=== PATIENT | male | born 1975 | race Hispanic/Latino ===

== ENCOUNTER 2023-03-07 18:16 | Inpatient (IN) | payer OTHER, SELFPAY ==
[2023-03-07] MEDS ORDERED: Ondansetron PF 4 MG/2 ML Vial ONE (18:43)
[2023-03-07] MEDS ORDERED: Morphine 4 MG/ML VIAL ONE (18:43)
[2023-03-07 18:44] LABS: #Eosinphils 0.2 thou/uL (0.0-0.7); #Monocytes 0.8 thou/uL (0.11-0.59); #Neutrophils 6.7 thou/uL (1.40-6.50); %Basophils 0.3 % (0.0-1.0); %Eosinophils 1.6 % (0.0-10.0); %Lymphocytes 26.2 % (21.0-51.0); %Monocytes 7.2 % (0.0-10.0); %Neutrophils 64.5 % (42.0-75.0); Hematocrit 42.8 % (42.0-52.0); Hemoglobin 14.4 g/dL (14.0-18.0); Mean Corpuscular HGB CONC 33.6 g/dL (32.0-36.0); Mean Corpuscular Hemoglobin 32.2 pg (27.0-31.0); Mean Corpuscular Volume 95.7 fl (78.0-98.0); Mean Platelet Volume 9.2 fL (7.4-10.4); Platelet Count 265 10x3/uL (130-400); RBC Distribution Width 12.4 % (11.5-14.5); Red Blood Cell (RBC) Count 4.47 mill/uL (4.70-6.10); White Blood Cell (WBC) Count 10.4 10x3/uL (4.8-10.8)
[2023-03-07] MEDS ORDERED: Clindamycin/D5W 300 MG/50 ML BAG ONE (18:45)
[2023-03-07] MEDS ORDERED: Dextrose 50% Abboject 50 ML SYRINGE SLOW IVP PRN (18:54)
[2023-03-07] MEDS ORDERED: Morphine 2 MG/ML VIAL SLOW IVP PRN (18:54)
[2023-03-07] MEDS ORDERED: Ipratropium/Albuterol 3 ML NEB NEB PRN (18:54)
[2023-03-07] MEDS ORDERED: TETANUS, DIPHTHERIA TOX,ADULT (TDVAX) 0.5 ML VIAL IM ONE (18:54)
[2023-03-07] MEDS ORDERED: Glucagon 1 MG/ML KIT IM PRN (18:54)
[2023-03-07] MEDS ORDERED: Ondansetron PF 4 MG/2 ML Vial IVP PRN (18:54)
[2023-03-07] MEDS ORDERED: hydrALAZINE 20 MG/ML VIAL SLOW IVP PRN (18:54)
[2023-03-07] MEDS ORDERED: Dextrose 5% in Water 1,000 ML IV PRN (18:54)
[2023-03-07 19:00] LABS: ALT (SGPT) 25 U/L (8-55); AST (SGOT) 24 U/L (5-34); Albumin 4.9 g/dL (3.5-5.0); Alkaline Phosphatase 61 U/L (40-110); Anion Gap 18 mmol/L (10-20); BUN (Urea Nitrogen) 18 mg/dL (8.9-20.6); Bilirubin, Total 0.4 mg/dL (0.2-1.2); Calc. Creatinine Clearance 0 mL/min (70-130); Calcium 9.3 mg/dL (7.8-10.44); Carbon Dioxide 18 mmol/L (22-29); Chloride 106 mmol/L (98-107); Estimated GFR 85; Globulin 3.2 g/dL (2.4-3.5); Glucose 103 mg/dL (70-105); Potassium 3.7 mmol/L (3.5-5.1); Protein, Total 8.1 g/dL (6.0-8.3); Sodium 138 mmol/L (136-145)
[2023-03-07 19:17] LABS: Prothrombin Time 13.3 sec (12.0-14.7)
[2023-03-07] MEDS ORDERED: Boostrix 0.5 ML (Tdap) VIAL (>/=7 yrs of age) ONE (19:24)
[2023-03-07] MEDS ORDERED: Morphine 2 MG/ML VIAL ONE ×2 (19:24→21:37)
[2023-03-07] MEDS ORDERED: Lidocaine 1% w/Epinephrine 1:100K 20 ML VIAL ONE (20:07)
[2023-03-07 22:40] VITALS: BMI 26.9
[2023-03-07] MEDS: Sodium Chloride 0.9% 1,000 ML IV SCH (22:57)
[2023-03-07] MEDS: Famotidine/PF 20 mg/2ml Vial SLOW IVP SCH (22:58)
[2023-03-07] MEDS: Acetaminophen 325 MG TAB PO SCH (22:58)
[2023-03-08] MEDS: Acetaminophen 325 MG TAB PO SCH (03:06)
[2023-03-08] MEDS: Acetaminophen 500 MG TAB PO SCH ×3 (05:11→23:17)
[2023-03-08] MEDS: Sodium Chloride 0.9% 1,000 ML IV SCH ×3 (05:16→16:42)
[2023-03-08] MEDS ORDERED: Rocuronium Bromide 10 MG/ML (10ML VIAL) ONE (09:25)
[2023-03-08] MEDS ORDERED: PROPOFOL 200 MG/20 ML VIAL ONE (09:25)
[2023-03-08] MEDS ORDERED: Dexamethasone 20 MG/5 ML VIAL ONE (09:25)
[2023-03-08] MEDS ORDERED: PHENYLEPHRINE-NS 100 MCG/ML 10 ML SYRINGE ONE (09:25)
[2023-03-08] MEDS ORDERED: Lidocaine 1% PF 5 ML VIAL ONE (09:25)
[2023-03-08] MEDS ORDERED: Ondansetron PF 4 MG/2 ML Vial ONE (09:25)
[2023-03-08] MEDS ORDERED: Ondansetron HCl/PF 4 MG/2 ML Vial IVP PRN (10:01)
[2023-03-08] MEDS ORDERED: Promethazine HCl 25 MG/ML VIAL IM PRN (10:01)
[2023-03-08] MEDS ORDERED: Lidocaine 1% (PF) 30 ML VIAL ONE (10:05)
[2023-03-08] MEDS ORDERED: Chlorhexidine Gluconate 15 ML UDCUP SSP ONE ×2 (10:05→10:52)
[2023-03-08] MEDS ORDERED: EPINEPHrine 1 MG/ML AMP ONE (10:05)
[2023-03-08] MEDS ORDERED: Bacitracin Zinc Ointment 30 gm TUBE ONE (10:05)
[2023-03-08] MEDS ORDERED: Ophthalmic Irrigation Solution 30 ML ONE (10:05)
[2023-03-08] MEDS ORDERED: Clindamycin/D5W 600 mg/50 ml Premix Bag ONE (10:10)
[2023-03-08] MEDS ORDERED: Fentanyl 250 MCG/5 ML VIAL ONE (10:12)
[2023-03-08] MEDS ORDERED: Midazolam HCl 2 mg/2 ml Vial ONE (10:12)
[2023-03-08] MEDS ORDERED: MINERAL OIL/WHITE PETROLATUM 3.5 GM TUBE ONE (10:41)
[2023-03-08] MEDS ORDERED: Cortisporin 1% Opth Oint 3.5 GM TUBE EA EYE SCH (11:45)
[2023-03-08] MEDS ORDERED: SUGAMMADEX SODIUM 200 MG/2 ML VIAL ONE (11:54)
[2023-03-08] MEDS ORDERED: fentaNYL 50 mcg/mL 1 mL Vial ONE (12:20)
[2023-03-08] MEDS: CEFAZOLIN 1 GM in Sodium Chloride 0.9% 100 ML IVPB SCH ×2 (15:41→16:39)
[2023-03-08] MEDS: Famotidine/PF 20 mg/2ml Vial SLOW IVP SCH ×2 (16:37→19:58)
[2023-03-08] MEDS: traMADol HCl 50 MG TAB PO PRN (20:03)
[2023-03-08] MEDS: Chlorhexidine Gluconate 15 ML UDCUP SSP SCH (21:30)
[2023-03-08] MEDS: Bacitracin Zinc Ointment 30 gm TUBE TOP PRN (23:18)
[2023-03-08] MEDS: Clindamycin 150 MG CAP PO SCH (23:18)
[2023-03-08] MEDS: Cortisporin 1% Opth Oint 3.5 GM TUBE EA EYE PRN (23:18)
[2023-03-09] MEDS: CEFAZOLIN 1 GM in Sodium Chloride 0.9% 100 ML IVPB SCH (01:33)
[2023-03-09] MEDS: Acetaminophen 500 MG TAB PO SCH ×2 (05:01→11:58)
[2023-03-09] MEDS: Sodium Chloride 0.9% 1,000 ML IV SCH (05:04)
[2023-03-09] MEDS: Clindamycin 150 MG CAP PO SCH ×2 (05:06→11:59)
[2023-03-09 08:08] VITALS: TEMP 98
[2023-03-09] MEDS: Chlorhexidine Gluconate 15 ML UDCUP SSP SCH (09:06)
[2023-03-09] MEDS: Famotidine/PF 20 mg/2ml Vial SLOW IVP SCH (09:07)
[2023-03-09] MEDS: traMADol HCl 50 MG TAB PO PRN (09:10)
[2023-03-09] MEDS: Bacitracin Zinc Ointment 30 gm TUBE TOP PRN (09:53)
[2023-03-09] MEDS: Cortisporin 1% Opth Oint 3.5 GM TUBE EA EYE PRN (09:53)
[2023-03-09 13:06] VITALS: BP 135/84
== END 2023-03-09 13:56 | disposition home or self-care (01) | DRG 581 ==
LOC: ERS 18:16 → SJJU 18:54
PROVIDERS: ADMIT Surgery; ATTEND Surgery
PROC: 0HQBXZZ Repair Right Upper Arm Skin, External Approach (ICD-10-PCS; principal; 2023-03-07)
PROC: 0CQ00ZZ Repair Upper Lip, Open Approach (ICD-10-PCS; 2023-03-07)
PROC: 0JQ10ZZ Repair Face Subcutaneous Tissue and Fascia, Open Approach (ICD-10-PCS; 2023-03-07)
PROC: 08QQXZZ Repair Right Lower Eyelid, External Approach (ICD-10-PCS; 2023-03-07)
PROC: 08QNXZZ Repair Right Upper Eyelid, External Approach (ICD-10-PCS; 2023-03-07)
DX: S01.411A Laceration without foreign body of right cheek and temporomandibular area, initial encounter (principal); S41.111A Laceration without foreign body of right upper arm, initial encounter; S01.119A Laceration without foreign body of unspecified eyelid and periocular area, initial encounter; S01.21XA Laceration without foreign body of nose, initial encounter; S01.511A Laceration without foreign body of lip, initial encounter; X58.XXXA Exposure to other specified factors, initial encounter; Y92.69 Other specified industrial and construction area as the place of occurrence of the external cause
CPT/HCPCS: 12002; 36415; 70450; 70486; 80053; 80307; 85025; 85610; 85730; 90471; 90715; 96365; 96375; 96376; G0390; J0171; J0690; J1100; J2001; J2250; J2270; J2272; J2405; J2704; J3010; J3490; J7050; S0028